=== PATIENT | male | born 1965 | race Caucasian/White ===

== ENCOUNTER 2017-06-06 10:13 | Emergency (ER) | payer SELFPAY ==
[2017-06-06 10:23] VITALS: BP 114/79
--- NOTE | 2017-06-06 13:45 | Emergency Department Report ---
- General Chief complaint: Skin/Abscess/Foreign Body Stated complaint: CYST ON FACE Time Seen by Provider: 06/06/17 13:18 Source: patient Mode of arrival: Ambulatory Limitations: No Limitations - History of Present Illness Initial comments: This is a 52-year-old male nontoxic, well nourished in appearance, no acute signs of distress presents to the ED complaining of chronic right-sided intermittent facial abscess. Patient stated the past 2 days he developed right facial swelling after shaving. They stated it is painful with level of 8 out of 10 that is described as aching sensation. Patient denies unable to open jaw. Denies numbness, tingling, fever, chills, dental pain, nausea, vomiting, chest pain or shortness of breath. Denies headache. Denies any trauma to the region. Denies any allergies or past medical history. They stated he was diagnosed with an abscess in the same region for the past 2 years and receives Bactrim which is relieved and subsides. MD complaint: abscess/boil -: Gradual, days(s) (2) Tetanus Up to Date: yes Location: face, back Severity scale (0 -10): 8 Quality: aching Consistency: constant Improves with: none Worsens with: none Context: none Associated symptoms: denies other symptoms Treatments Prior to Arrival: none - Related Data Previous Rx's Medication Instructions Recorded Last Taken Type Acetaminophen/Codeine [Tylenol #3] 1 tab PO Q6H PRN #15 tab 08/09/15 Unknown Rx Cephalexin [Keflex] 500 mg PO Q6HR #28 capsule 08/09/15 Unknown Rx Sulfamethoxazole/Trimethoprim 1 each PO BID #14 tablet 08/09/15 Unknown Rx [Bactrim DS TAB] Sulfamethoxazole/Trimethoprim 1 each PO BID #14 tablet 06/28/16 Unknown Rx [Bactrim DS TAB] Sulfamethoxazole/Trimethoprim 1 each PO BID #14 tablet 06/06/17 Unknown Rx [Bactrim DS TAB] Allergies Allergy/AdvReac Type Severity Reaction Status Date / Time No Known Allergies Allergy Verified 08/09/15 11:38 Abscess Boil HPI - HPI Chief Complaint: Skin/Abscess/Foreign Body Stated Complaint: CYST ON FACE Time Seen by Provider: 06/06/17 13:18 Home Medications: Previous Rx's Medication Instructions Recorded Last Taken Type Acetaminophen/Codeine [Tylenol #3] 1 tab PO Q6H PRN #15 tab 08/09/15 Unknown Rx Cephalexin [Keflex] 500 mg PO Q6HR #28 capsule 08/09/15 Unknown Rx Sulfamethoxazole/Trimethoprim 1 each PO BID #14 tablet 08/09/15 Unknown Rx [Bactrim DS TAB] Sulfamethoxazole/Trimethoprim 1 each PO BID #14 tablet 06/28/16 Unknown Rx [Bactrim DS TAB] Sulfamethoxazole/Trimethoprim 1 each PO BID #14 tablet 06/06/17 Unknown Rx [Bactrim DS TAB] Allergies/Adverse Reactions: Allergies Allergy/AdvReac Type Severity Reaction Status Date / Time No Known Allergies Allergy Verified 08/09/15 11:38 ED Review of Systems ROS: Stated complaint: CYST ON FACE Other details as noted in HPI Constitutional: denies: chills, fever Eyes: denies: eye pain, eye discharge, vision change ENT: denies: ear pain, throat pain Respiratory: denies: cough, shortness of breath, wheezing Cardiovascular: denies: chest pain, palpitations Endocrine: no symptoms reported Gastrointestinal: denies: abdominal pain, nausea, diarrhea Genitourinary: denies: urgency, dysuria Musculoskeletal: denies: back pain, joint swelling, arthralgia Skin: denies: rash, lesions Neurological: denies: headache, weakness, paresthesias Psychiatric: denies: anxiety, depression Hematological/Lymphatic: denies: easy bleeding, easy bruising ED Past Medical Hx - Past Medical History Previous Medical History?: No - Surgical History Past Surgical History?: No - Social History Smoking Status: Current Every Day Smoker Substance Use Type: None - Medications Home Medications: Home Medications Medication Instructions Recorded Confirmed Last Taken Type Acetaminophen/Codeine [Tylenol #3] 1 tab PO Q6H PRN #15 tab 08/09/15 Unknown Rx Cephalexin [Keflex] 500 mg PO Q6HR #28 capsule 08/09/15 Unknown Rx Sulfamethoxazole/Trimethoprim 1 each PO BID #14 tablet 08/09/15 Unknown Rx [Bactrim DS TAB] Sulfamethoxazole/Trimethoprim 1 each PO BID #14 tablet 06/28/16 Unknown Rx [Bactrim DS TAB] Sulfamethoxazole/Trimethoprim 1 each PO BID #14 tablet 06/06/17 Unknown Rx [Bactrim DS TAB] ED Physical Exam - General Limitations: No Limitations General appearance: alert, in no apparent distress - Head Head exam: Present: atraumatic, normocephalic - Eye Eye exam: Present: normal appearance, PERRL, EOMI. Absent: scleral icterus, conjunctival injection, nystagmus, periorbital swelling, periorbital tenderness Pupils: Present: normal accommodation - ENT ENT exam: Present: normal exam, normal orophraynx, mucous membranes moist, TM's normal bilaterally, normal external ear exam - Expanded ENT Exam Expanded Ear exam: Present: normal external inspection Mouth exam: Present: normal external inspection, tongue normal. Absent: drooling, trismus, muffled voice, tongue elevation, laceration Teeth exam: Present: normal inspection, other (Uvula midline. No abscess or swelling noted.). Absent: dental caries, gingival enlargement Throat exam: Positive: normal inspection. Negative: tonsillar erythema, tonsillomegaly, tonsillar exudate, R peritonsillar mass, L peritonsillar mass - Neck Neck exam: Present: normal inspection, full ROM. Absent: tenderness, meningismus, lymphadenopathy, thyromegaly - Respiratory Respiratory exam: Present: normal lung sounds bilaterally. Absent: respiratory distress, wheezes, rales, rhonchi, stridor, chest wall tenderness, accessory muscle use, decreased breath sounds, prolonged expiratory - Cardiovascular Cardiovascular Exam: Present: regular rate, normal rhythm, normal heart sounds. Absent: systolic murmur, diastolic murmur, rubs, gallop - GI/Abdominal GI/Abdominal exam: Present: soft, normal bowel sounds - Rectal Rectal exam: Present: deferred - Extremities Exam Extremities exam: Present: normal inspection, full ROM, normal capillary refill. Absent: tenderness, pedal edema, joint swelling, calf tenderness - Back Exam Back exam: Present: normal inspection, full ROM. Absent: tenderness, CVA tenderness (R), CVA tenderness (L), muscle spasm, paraspinal tenderness, vertebral tenderness, rash noted - Neurological Exam Neurological exam: Present: alert, oriented X3, CN II-XII intact, normal gait, reflexes normal - Psychiatric Psychiatric exam: Present: normal affect, normal mood - Skin Skin exam: Present: warm, dry, intact, normal color. Absent: rash - Other Other exam information: 1 cm tender nodule to the right lower mandible region. No fluctuance or induration noted. Warm to touch. Tenderness touch. No pus, or drainage noted. ED Course Vital Signs 06/06/17 10:21 Temperature 98.5 F Pulse Rate 91 H Respiratory 16 Rate Blood Pressure 114/79 O2 Sat by Pulse 99 Oximetry - Reevaluation(s) Reevaluation #1: 06/06/17 13:43 Patient is speaking in full sentences with no signs of distress noted. ED Medical Decision Making - Medical Decision Making This is a 52-year-old male that presents with nodular swellings in her right mandible region with a consistency of cellulitis. Patient received Bactrim at the time of discharge. Patient stated that what he has been taking for the past 2 years due to an intermittent basis of this and is subsided. Patient was instructed to return in 3 days for reassessment of the nodular swelling. At time time of discharge, the patient does not seem toxic or ill in appearance. No acute signs of distress noted. Patient agrees to discharge treatment plan of care. No further questions noted by the patient. Critical care attestation.: If time is entered above; I have spent that time in minutes in the direct care of this critically ill patient, excluding procedure time. ED Disposition Clinical Impression: Abscess, Furuncle Disposition: DC-01 TO HOME OR SELFCARE Is pt being admited?: No Does the pt Need Aspirin: No Condition: Stable Instructions: Abscess (ED), Furunculosis and Carbunculosis (ED), Sulfamethoxazole/Trimethoprim (By mouth) Additional Instructions: Follow-up with a primary care doctor in 3-5 days or if symptoms worsen or continue return to emergency room as soon as possible. Take full course of antibiotic that was prescribed. Return to the emergency room in 3 days for reassessment of the abscess/nodule. Prescriptions: Sulfamethoxazole/Trimethoprim [Bactrim DS TAB] 1 each PO BID #14 tablet Referrals: PRIMARY MD DORYS [Primary Care Provider] - 3-5 Days BEV SCHERER MD [Staff Physician] - 3-5 Days [facility] [Outside] - 3-5 Days [facility] [Outside] - 3-5 Days Forms: Work/School Release Form(ED)
== END 2017-06-06 14:19 | disposition home or self-care (01) ==
LOC: ED 10:13
DX: L02.01 Cutaneous abscess of face (principal); F17.200 Nicotine dependence, unspecified, uncomplicated
CPT/HCPCS: 99282

== ENCOUNTER 2017-06-09 02:55 | Emergency (ER) | payer SELFPAY ==
[2017-06-09] MEDS ORDERED: VALIUM IM ONE (08:57)
[2017-06-09] MEDS ORDERED: MOTRIN PO ONE (08:57)
--- NOTE | 2017-06-09 09:02 | Emergency Department Report ---
Abscess Boil HPI - HPI Chief Complaint: Skin/Abscess/Foreign Body Stated Complaint: ABSCESS ON FACE Time Seen by Provider: 06/09/17 08:41 Duration: 3 Days Location: Other (Jaw right side) History: Yes Pain, No Fever, No Purulent Drainage, No Numbness, No Foreign Body , No Previous History, No Insect Bite HPI: This is a 52-year-old male presents to ED complaining of bumps of the right side of his jaw. Patient states lump has gotten bigger and painful past 4 days. Patient states he remembers she nicked himself while shaving a couple weeks ago but but thought nothing of it. He denies any injury, fever, Home Medications: Previous Rx's Medication Instructions Recorded Last Taken Type Acetaminophen/Codeine [Tylenol #3] 1 tab PO Q6H PRN #15 tab 08/09/15 Unknown Rx Sulfamethoxazole/Trimethoprim 1 each PO BID #14 tablet 08/09/15 Unknown Rx [Bactrim DS TAB] Sulfamethoxazole/Trimethoprim 1 each PO BID #14 tablet 06/28/16 Unknown Rx [Bactrim DS TAB] Sulfamethoxazole/Trimethoprim 1 each PO BID #14 tablet 06/06/17 Unknown Rx [Bactrim DS TAB] Cephalexin [Keflex] 500 mg PO Q6HR #28 capsule 06/09/17 Unknown Rx Ibuprofen [Motrin] 800 mg PO Q8HR PRN #30 tablet 06/09/17 Unknown Rx Allergies/Adverse Reactions: Allergies Allergy/AdvReac Type Severity Reaction Status Date / Time No Known Allergies Allergy Verified 08/09/15 11:38 ED Review of Systems ROS: Stated complaint: ABSCESS ON FACE Other details as noted in HPI Constitutional: denies: chills, fever Eyes: denies: eye pain, eye discharge, vision change ENT: denies: ear pain, throat pain Respiratory: denies: cough, shortness of breath, wheezing Cardiovascular: denies: chest pain, palpitations Endocrine: no symptoms reported Gastrointestinal: denies: abdominal pain, nausea, diarrhea Genitourinary: denies: urgency, dysuria Musculoskeletal: denies: back pain, joint swelling, arthralgia Skin: denies: rash, lesions Neurological: denies: headache, weakness, paresthesias Psychiatric: denies: anxiety, depression Hematological/Lymphatic: denies: easy bleeding, easy bruising ED Past Medical Hx - Past Medical History Previous Medical History?: No - Surgical History Past Surgical History?: No - Social History Smoking Status: Current Every Day Smoker Substance Use Type: Alcohol - Medications Home Medications: Home Medications Medication Instructions Recorded Confirmed Last Taken Type Acetaminophen/Codeine [Tylenol #3] 1 tab PO Q6H PRN #15 tab 08/09/15 Unknown Rx Sulfamethoxazole/Trimethoprim 1 each PO BID #14 tablet 08/09/15 Unknown Rx [Bactrim DS TAB] Sulfamethoxazole/Trimethoprim 1 each PO BID #14 tablet 06/28/16 Unknown Rx [Bactrim DS TAB] Sulfamethoxazole/Trimethoprim 1 each PO BID #14 tablet 06/06/17 Unknown Rx [Bactrim DS TAB] Cephalexin [Keflex] 500 mg PO Q6HR #28 capsule 06/09/17 Unknown Rx Ibuprofen [Motrin] 800 mg PO Q8HR PRN #30 tablet 06/09/17 Unknown Rx ED Abscess Boil Physical Exam - Exam General: Vital signs noted. No distress. Alert and acting appropriately. Front/Back of Body, Lg (Color): 1 - 4-5 flactulant boil/carbunicle abscess Size: 5 cm Exam: Yes Tenderness, Yes Fluctuance, Yes Surrounding Cellulites/Erythema, Yes Normal Neurologic Exam, Yes Normal Circulation, No Lymphangitis, No Crepitation , No Heart Murmur I & D Note - I & D Note I & D Note: Patient positioned appropriately, 15cc lidocaine with/without epinephrine was used as a local anesthetic. #11 blade scalpal used for single incision. Additional local anesthetic injected into surrounding viable tissue prior to blunt dissection of loculated adhesions. Copius drainage of pus. Wound packed with iodoform gauze. Procedure tolerated without complications. Wound dressed with sterile 4x4 guaze and paper tape. Pt tolerated procedure well. ED Course Vital Signs 06/09/17 02:59 Pulse Rate 98 H Respiratory 18 Rate Blood Pressure 100/74 O2 Sat by Pulse 97 Oximetry Critical care attestation.: If time is entered above; I have spent that time in minutes in the direct care of this critically ill patient, excluding procedure time. ED Medical Decision Making - Medical Decision Making 52-year-old male presents with right jaw abscess ED course: Patient received pain control in ED Patient tolerated the procedure well Discussion patient to return to the ED in 3 days for a wound check. Discussed the antibiotic and pain prescription as given Signs are normal patient is in no acute distress ED Disposition Clinical Impression: Carbuncle and furuncle of face, Cutaneous abscess of face Disposition: - TO HOME OR SELFCARE Is pt being admited?: No Does the pt Need Aspirin: No Condition: Stable Instructions: Abscess Incision and Drainage (ED), Furunculosis and Carbunculosis (ED), Abscess (ED) Prescriptions: Cephalexin [Keflex] 500 mg PO Q6HR #28 capsule Ibuprofen [Motrin] 800 mg PO Q8HR PRN #30 tablet PRN Reason: Pain Referrals: PRIMARY CARE, [Primary Care Provider] - 3-5 Days [facility] [Outside] - 3-5 Days [facility] [Outside] - 3-5 Days [facility] [Outside] - 3-5 Days Forms: Accompanied Note, Work/School Release Form(ED) Time of Disposition: 09:30
[2017-06-09 09:29] VITALS: BP 113/83
[2017-06-09] MEDS ORDERED: XYLOCAINE 1% 20 mL INFILTRATI NR (10:00)
== END 2017-06-09 10:28 | disposition home or self-care (01) ==
LOC: ED 02:55
DX: L02.01 Cutaneous abscess of face (principal); F17.200 Nicotine dependence, unspecified, uncomplicated
CPT/HCPCS: 10060; 96372; 99282; J3360

== ENCOUNTER 2017-06-24 02:07 | Emergency (ER) | payer SELFPAY ==
[2017-06-24 08:28] VITALS: BP 117/87
--- NOTE | 2017-06-24 12:01 | Emergency Department Report ---
Abscess Boil HPI - HPI Chief Complaint: Skin/Abscess/Foreign Body Stated Complaint: ABSCESS ON FACE Time Seen by Provider: 06/24/17 11:27 Duration: 1 Week Location: Other (right chin) History: Yes Pain, Yes Purulent Drainage, Yes Previous History (same 1 week ago ), No Fever, No Numbness, No Foreign Body, No Insect Bite Home Medications: Previous Rx's Medication Instructions Recorded Last Taken Type Acetaminophen/Codeine [Tylenol #3] 1 tab PO Q6H PRN #15 tab 08/09/15 Unknown Rx Sulfamethoxazole/Trimethoprim 1 each PO BID #14 tablet 08/09/15 Unknown Rx [Bactrim DS TAB] Sulfamethoxazole/Trimethoprim 1 each PO BID #14 tablet 06/28/16 Unknown Rx [Bactrim DS TAB] Sulfamethoxazole/Trimethoprim 1 each PO BID #14 tablet 06/06/17 Unknown Rx [Bactrim DS TAB] Cephalexin [Keflex] 500 mg PO Q6HR #28 capsule 06/09/17 Unknown Rx Ibuprofen [Motrin] 800 mg PO Q8HR PRN #30 tablet 06/09/17 Unknown Rx Ibuprofen [Motrin 800 MG tab] 800 mg PO Q8HR PRN #30 tablet 06/24/17 Unknown Rx Sulfamethoxazole/Trimethoprim 1 each PO BID #20 tablet 06/24/17 Unknown Rx [Bactrim DS TAB] Allergies/Adverse Reactions: Allergies Allergy/AdvReac Type Severity Reaction Status Date / Time No Known Allergies Allergy Verified 08/09/15 11:38 ED Review of Systems ROS: Stated complaint: ABSCESS ON FACE Other details as noted in HPI Constitutional: denies: chills, fever Eyes: denies: eye pain, eye discharge, vision change ENT: denies: ear pain, throat pain Respiratory: denies: cough, shortness of breath, wheezing Cardiovascular: denies: chest pain, palpitations Endocrine: no symptoms reported Gastrointestinal: denies: abdominal pain, nausea, diarrhea Genitourinary: denies: urgency, dysuria Musculoskeletal: denies: back pain, joint swelling, arthralgia Skin: other (abscess chin right ). denies: rash, lesions Neurological: denies: headache, weakness, paresthesias Psychiatric: denies: anxiety, depression Hematological/Lymphatic: denies: easy bleeding, easy bruising ED Past Medical Hx - Past Medical History Previous Medical History?: No - Surgical History Past Surgical History?: No - Social History Smoking Status: Current Every Day Smoker Substance Use Type: Alcohol, Marijuana - Medications Home Medications: Home Medications Medication Instructions Recorded Confirmed Last Taken Type Acetaminophen/Codeine [Tylenol #3] 1 tab PO Q6H PRN #15 tab 08/09/15 Unknown Rx Sulfamethoxazole/Trimethoprim 1 each PO BID #14 tablet 08/09/15 Unknown Rx [Bactrim DS TAB] Sulfamethoxazole/Trimethoprim 1 each PO BID #14 tablet 06/28/16 Unknown Rx [Bactrim DS TAB] Sulfamethoxazole/Trimethoprim 1 each PO BID #14 tablet 06/06/17 Unknown Rx [Bactrim DS TAB] Cephalexin [Keflex] 500 mg PO Q6HR #28 capsule 06/09/17 Unknown Rx Ibuprofen [Motrin] 800 mg PO Q8HR PRN #30 tablet 06/09/17 Unknown Rx Ibuprofen [Motrin 800 MG tab] 800 mg PO Q8HR PRN #30 tablet 06/24/17 Unknown Rx Sulfamethoxazole/Trimethoprim 1 each PO BID #20 tablet 06/24/17 Unknown Rx [Bactrim DS TAB] ED Abscess Boil Physical Exam - Exam General: Vital signs noted. No distress. Alert and acting appropriately. Front/Back of Body, Lg (Color): 1 - right chin/facial asbscess less than 1 cm, erythem purulent drainage pain to touch draining Exam: Yes Tenderness, Yes Surrounding Cellulites/Erythema, Yes Normal Neurologic Exam, Yes Normal Circulation, No Fluctuance, No Lymphangitis, No Crepitation, No Heart Murmur ED Course Vital Signs 06/24/17 06/24/17 05:20 08:27 Temperature 98.1 F 97.7 F Pulse Rate 70 67 Respiratory 18 16 Rate Blood Pressure 110/78 Blood Pressure 117/87 [Left] O2 Sat by Pulse 100 100 Oximetry Critical care attestation.: If time is entered above; I have spent that time in minutes in the direct care of this critically ill patient, excluding procedure time. ED Medical Decision Making - Medical Decision Making pt is a 52 y/o aam with hx of right facial abscess x 2 weeks I&D 1 week ago pt advises that he did not take abx as prescribed as he did not have the financial resources to secure them, endorses that abscess is better but still scant drainage noted in am, pt pulled jose coon 3 days ago exam: today small abcess facial scant drainage mild erythema , purulent discharge to manual expression , abscess is not fluctuant at this time, no repeat I&D warranted will change abx to bactrim DS as it is free at [facility] and pt endorse that he can pick them up today, incidental finding for multiple dental carries no gum erythema no trismus no facial swelling no focal oral abscess , will follow with with [facility] for evaluation and treatment of same pt verbalized agreement and understanding with discharge plan. ED Disposition Clinical Impression: Facial abscess Disposition: - TO HOME OR SELFCARE Is pt being admited?: No Does the pt Need Aspirin: No Condition: Good Instructions: Abscess (ED) Additional Instructions: follow up with [facility] [phone] Prescriptions: Ibuprofen [Motrin 800 MG tab] 800 mg PO Q8HR PRN #30 tablet PRN Reason: Pain Sulfamethoxazole/Trimethoprim [Bactrim DS TAB] 1 each PO BID #20 tablet Referrals: PRIMARY CARE, [Primary Care Provider] - 3-5 Days Forms: Work/School Release Form(ED) Time of Disposition: 12:04
== END 2017-06-24 12:18 | disposition home or self-care (01) ==
LOC: ED 02:07
DX: L02.01 Cutaneous abscess of face (principal); F17.210 Nicotine dependence, cigarettes, uncomplicated; F12.10 Cannabis abuse, uncomplicated
CPT/HCPCS: 99282

== ENCOUNTER 2018-11-18 09:30 | Emergency (ER) | payer OTHER ==
[2018-11-18] MEDS ORDERED: XYLOCAINE 1% MPF 5 mL INFILTRATI ONE (10:42)
--- NOTE | 2018-11-18 10:45 | Emergency Department Report ---
HPI - General Chief Complaint: Dental/Oral Time Seen by Provider: 11/18/18 10:28 - HPI HPI: 53-year-old -[place] male presents to the emergency department with complaint of painful swelling to the right lower side of the face. He appears to have an abscess that has formed. He says that he had this one time in the past secondary to an ingrown hair. He tried using a warm compress and some Tylenol and says that it improved slightly yesterday but woke up and was much worse. He denies any fever, drooling, trismus. He otherwise denies any past medical history. He does not have a primary care physician. ED Past Medical Hx - Past Medical History Previous Medical History?: No - Surgical History Past Surgical History?: No - Social History Smoking Status: Current Every Day Smoker Substance Use Type: None - Medications Home Medications: Home Medications Medication Instructions Recorded Confirmed Last Taken Type Acetaminophen/Codeine [Tylenol #3] 1 tab PO Q6H PRN #15 tab 08/09/15 Unknown Rx Sulfamethoxazole/Trimethoprim 1 each PO BID #14 tablet 06/28/16 Unknown Rx [Bactrim DS TAB] Sulfamethoxazole/Trimethoprim 1 each PO BID #14 tablet 06/06/17 Unknown Rx [Bactrim DS TAB] Ibuprofen [Motrin] 800 mg PO Q8HR PRN #30 tablet 06/09/17 Unknown Rx RX: cephALEXin [Keflex] 500 mg PO Q6HR #28 capsule 06/09/17 Unknown Rx RX: Ibuprofen [Motrin 800 MG tab] 800 mg PO Q8HR PRN #30 tablet 06/24/17 Un known Rx Sulfamethoxazole/Trimethoprim 1 each PO BID #20 tablet 06/24/17 Unknown Rx [Bactrim DS TAB] HYDROcodone/APAP 5-325 [Circle 1 each PO Q6HR PRN #8 tablet 11/18/18 Unknown Rx 5/325] RX: Sulfamethoxazole/Trimethoprim 1 each PO BID #14 tablet 11/18/18 Unknown Rx [Bactrim DS TAB] ED Review of Systems ROS: Stated complaint: SWELLING ON (R) SIDE OF FACE Other details as noted in HPI Comment: All other systems reviewed and negative Constitutional: denies: chills, fever Eyes: denies: eye pain, vision change ENT: denies: ear pain, throat pain Respiratory: denies: cough, shortness of breath Cardiovascular: denies: chest pain, palpitations Gastrointestinal: denies: vomiting, diarrhea Genitourinary: denies: dysuria, discharge Musculoskeletal: denies: back pain, arthralgia Skin: lesions. denies: pruritus Neurological: denies: headache, weakness Physical Exam - Physical Exam Vital Signs: Vital Signs 11/18/18 09:32 Temperature 98.1 F Pulse Rate 114 H Respiratory 18 Rate Blood Pressure 154/105 O2 Sat by Pulse 98 Oximetry Physical Exam: GENERAL: The patient is well-developed well-nourished. HEENT: Normocephalic. Atraumatic. Patient has moist mucous membranes. Oropharynx is clear without drooling or trismus. EYES: Extraocular motions are intact. Pupils are equal and reactive to light bilaterally. NECK: Supple. Trachea is midline. CHEST/LUNGS: Clear to auscultation. There is no respiratory distress noted. HEART/CARDIOVASCULAR: Regular. There is no tachycardia. There is no obvious murmur. ABDOMEN: There is no abdominal distention. SKIN: Skin is warm and dry. There is an abscess to the right lower cheek/face that is about the size of a golf ball. The area is tender to palpation, fluctuant but no surrounding erythema. No current bleeding, weeping or drainage. NEURO: The patient is awake, alert, and oriented. The patient is cooperative. The patient has no focal neurologic deficits. The patient has normal speech. MUSCULOSKELETAL: There is no tenderness or deformity. There is no evidence of acute injury. ED Course Vital Signs 11/18/18 09:32 Temperature 98.1 F Pulse Rate 114 H Respiratory 18 Rate Blood Pressure 154/105 O2 Sat by Pulse 98 Oximetry - I & D Right Face Type of Procedure: Simple Site: right lower face Blade Size: 11 I & D Procedure: betadine prep, sterile drapes applied, sterile dressing applied Progress: 3-4 mL of 1% lidocaine without epinephrine was used to locally anesthetize the top of the abscess. Just prior to this, the area was cleaned with Betadine solution. After the patient had some appropriate local anesthesia, an 11 blade scalpel was used to make a 1.5 cm incision. Using my hands, I was able to get about 10 mL of purulent discharge. The area is then covered with sterile gauze. The patient tolerated the procedure well. ED Medical Decision Making - Medical Decision Making Patient presents with a few days of a right lower face abscess. Vital signs are stable and patient is afebrile. Oropharynx is clear and it appears to be subcutaneous and/or superficial. An incision and drainage was done with about 10 mL of purulent drainage return and the area of swelling completely collapsed when the abscess drained. The patient feels immensely improved after the I&D. He will be placed on antibiotics. He will continue some warm compresses to the area. He will follow up in a few days for a wound check and will return to the emergency Department with any worsening of his symptoms or any acute distress. - Differential Diagnosis abscess, boil, cyst, cellulitis Critical Care Time: No Critical care attestation.: If time is entered above; I have spent that time in minutes in the direct care of this critically ill patient, excluding procedure time. ED Disposition Clinical Impression: Facial abscess Disposition: TO HOME OR SELFCARE Is pt being admited?: No Condition: Stable Instructions: Abscess Incision and Drainage (ED), Abscess (ED) Additional Instructions: Please follow up with a primary care physician for a wound check in a few days. Return to the emergency department with any worsening of your symptoms, development of fever, or with any acute distress. Take the antibiotics as prescribed. Use a warm compress multiple times per day to see if you can express anymore infection. Clean the area with soap and water and keep it dry. You have been prescribed a medication that can be sedating. Therefore, this medication cannot be taken prior to driving, working, being responsible for children, and cannot be mixed with alcohol of any quantity. Prescriptions: HYDROcodone/APAP 5-325 [Circle 5/325] 1 each PO Q6HR PRN #8 tablet PRN Reason: Pain RX: Sulfamethoxazole/Trimethoprim [Bactrim DS TAB] 1 each PO BID #14 tablet Referrals: OSRAYA HIGGINS MD [Staff Physician] - 2-3 Days [facility] [Outside] - 2-3 Days Time of Disposition: 11:34
[2018-11-18] MEDS ORDERED: BACTRIM DS PO ONE (11:31)
[2018-11-18 11:48] VITALS: BP 140/92
== END 2018-11-18 11:50 | disposition home or self-care (01) ==
LOC: ED 09:30
DX: L02.01 Cutaneous abscess of face (principal); F17.200 Nicotine dependence, unspecified, uncomplicated